=== PATIENT | female | born 1970 | race Caucasian/White ===

== ENCOUNTER → 2018-05-11 | Emergency (ER) | payer BC ==
[~2018-05-11] VITALS: Ht 157.5 cm; Wt 90.7 kg
[~2018-05-11] MED LIST: PNEU16DI2; RELAFEN; [UNRECOGNIZED DRUG - CODE]
== END | disposition home or self-care (01) ==
LOC: ER 19:04
DX: S40.011A Contusion of right shoulder, initial encounter (principal); W18.39XA Other fall on same level, initial encounter; Y93.89 Activity, other specified; Y92.488 Other paved roadways as the place of occurrence of the external cause; Y99.8 Other external cause status